=== PATIENT | female | born 1945 | race Caucasian/White ===

== ENCOUNTER 2018-07-15 07:42 | Inpatient (IN) | payer MEDICARE, OTHER ==
[~2018-07-15] VITALS: Ht 170.2 cm; Wt 98.7 kg
[2018-07-15] VITALS (29 sets, daily range): BP systolic 100–147; BP diastolic 53–75; PULSE 56–80; RESP 12–34; Ht 170.2 cm; Wt 98.7 kg
[2018-07-15] MEDS ORDERED: TRANEXAMIC ACID 1GM/100ML(PMX) 100 ML INTRA-OP X1 IVPB ONE (08:00)
[2018-07-15] MEDS ORDERED: LACTATED RINGER'S 1,000 ML IV* SCH (08:00)
[2018-07-15] MEDS ORDERED: DEXAMETHASONE 4 MG/ML 1 ML INJ IV ONE (08:00)
[2018-07-15] MEDS ORDERED: CEFAZOLIN 2 GM/50 ML (PMX) 50 ML IVPB ONE (08:00)
[2018-07-15] MEDS ORDERED: ACETAMINOPHEN 500 MG TAB PO ONE (08:00)
[2018-07-15] MEDS ORDERED: TRANEXAMIC ACID 1GM/100ML(PMX) 100 ML PRE-OP X1 IVPB ONE (08:00)
[2018-07-15] MEDS ORDERED: MIRA50TA PO (08:47)
[2018-07-15] MEDS ORDERED: LEVO112T42 PO (08:48)
[2018-07-15] MEDS ORDERED: LOSA50TA14 PO (08:48)
[2018-07-15] MEDS ORDERED: TRAZ-111 PO (08:49)
[2018-07-15] MEDS ORDERED: OXYB5TAB PO (08:49)
[2018-07-15] MEDS ORDERED: ACETAMINOPHEN 1000MG/100ML IV 100 ML IVPB ONE (09:00)
--- NOTE | 2018-07-15 09:01 | HPN ---
Date/Time of Note Date/Time of Note DATE: 07/15/18 TIME: 09:01 Interval H&P Admission Note Pt. seen H&P reviewed: No system changes RONNY BIRMINGHAM Jul 15, 2018 09:01
--- NOTE | 2018-07-15 09:38 | PREAC ---
Date/Time of Note Date/Time of Note DATE: 07/15/18 TIME: 09:36 Anesthesia Eval and Record Evaluation Time Pre-Procedure Interview DATE: 07/15/18 TIME: 09:36 Age 72 Sex female NPO: 8 hrs Preoperative diagnosis left knee joint loosening Planned procedure left total knee replacement revision Past Medical History Past Medical History: Includes Cardio: HTN, Dyslipidemia Endo: Hypothyroid Musculoskeletal: Osteoarthritis Surgery & Anesthesia Issues No known issue Meds Anticoagulation: No Beta Nova within 24 hr: No Reason Beta Nova not given: Pt. not on B-Nova Reported Medications Oxybutynin Chloride (Oxybutynin Chloride ER) 5 Mg Tab.er.24, 5 MG PO DAILY, TAB 07/15/18 Trazodone Hcl* (Trazodone Hcl*) 50 Mg Tablet, 25 MG PO QHS, #30 TAB 07/15/18 Levothyroxine Sodium* (Levoxyl*) 112 Mcg Tablet, 112 MCG PO BEFORE BREAKFAST, #30 TAB 07/15/18 Losartan Potassium* (Losartan Potassium*) 50 Mg Tablet, 50 MG PO DAILY, TAB 07/15/18 Mirabegron (Myrbetriq) 50 Mg Tab.er.24h, 50 MG PO DAILY, TAB 07/15/18 Current Medications Lactated Ringer's 1,000 ml @ 125 mls/hr Q8H IV* Last administered on 07/15/18at 08:57; Admin Dose 125 MLS/HR; Start 07/15/18 at 08:00; Stop 07/15/18 at 15:59 Meds reviewed: Yes Allergies Coded Allergies: No Known Allergy (Unverified , 07/15/18) Allergies Reviewed: Yes Labs/Studies Labs Reviewed: Reviewed by anesthesiologist test: N/A Studies: ECG, CXR Pre-procedure Exam Last vitals Vital Signs Date Temp Pulse Resp B/P (MAP) Pulse Ox O2 O2 Flow FiO2 Time Delivery Rate 07/15/18 98.7 78 16 147/71 95 Room Air 09:12 (96) Airway: Adequate mouth opening, Adequate thyromental dist Mallampati: Mallampati II Teeth: Normal Lung: Normal Heart: Normal ASA Physical Status ASA physical status: 2 Emergency: None Planned Anesthetic General/MAC: LMA Neuraxial: Spinal Planned Pain Management Parenteral pain med Pre-operative Attestations Prior to commencing anesthesia and surgery, the patient was re-evaluated, there was verification of: *The patient's identity *The results of appropriate recent lab work and preoperative vital signs *The above evaluation not changing prior to induction *Anesthetic plan, risk benefits, alternative and complications discussed with patient/family; questions answered; patient/family understands, accepts and wishes to proceed. ANTHONY ALVAREZ Jul 15, 2018 09:38
[2018-07-15] MEDS ORDERED: BACITRACIN 50000 UNITS INJ ONE (09:39)
[2018-07-15] MEDS ORDERED: POLYMYXIN B 500000 UNIT INJ ONE (09:41)
[2018-07-15] MEDS ORDERED: EPINEPHrine 1 MG INJ ONE (09:48)
[2018-07-15] MEDS ORDERED: LIDOCAINE 2% (SDV) 5 ML INJ ONE (09:48)
[2018-07-15] MEDS ORDERED: ROCURONIUM 50 MG INJ ONE (09:48)
[2018-07-15] MEDS ORDERED: PROPOFOL 100 ML ONE (09:48)
[2018-07-15] MEDS ORDERED: CEFAZOLIN 1 GM INJ ONE (09:49)
[2018-07-15] MEDS ORDERED: MIDAZOLAM 1 MG/ML 2 ML INJ ONE (09:55)
[2018-07-15] MEDS ORDERED: FENTAnyl 50 MCG/ML VIAL ONE (09:55)
[2018-07-15] MEDS ORDERED: TRANEXAMIC ACID 1GM/100ML(PMX) 100 ML ONE ×2 (10:54→12:34)
[2018-07-15] MEDS ORDERED: DEXAMETHASONE 4 MG/ML 5 ML INJ ONE (12:32)
[2018-07-15] MEDS ORDERED: ONDANSETRON 4 MG INJ ONE (12:32)
[2018-07-15] MEDS ORDERED: GLYCOPYRROLATE 0.4 MG INJ ONE (13:27)
[2018-07-15] MEDS ORDERED: NEOSTIGMINE 3 MG/3 ML SYRINGE ONE (13:28)
--- NOTE | 2018-07-15 13:29 | SIPON ---
Date/Time of Note Date/Time of Note DATE: 07/15/18 TIME: 13:27 Operative Report Preoperative Diagnosis Failed left total knee replacement Postoperative Diagnosis Same Operation/Procedure Performed Revision of left total knee replacement Surgeon see signature line medical assistant float STEWART Oliveira Anesthesia: spinal Estimated blood loss: 250 - 300 ml's Transfusion Required none Specimen Cultures Grafts/Implants Attune revision knee, size 5 femur, size 4 tibia, 14 mm rotating platform polyethylene and 35 mm patella. 16 x 60 mm stems were used on both sides as well as a 40 mm femoral sleeve and 37 mm tibial sleeve Complications none RONNY BIRMINGHAM Jul 15, 2018 13:29
--- NOTE | 2018-07-15 13:34 | OPR ---
Date/Time of Note Date/Time of Note DATE: 07/15/18 TIME: 13:29 Operative Report Procedure Date: Jul 15, 2018 Preoperative Diagnosis Failed left total knee replacement Postoperative Diagnosis Same Operation/Procedure Performed Mechanical loosening of left total knee replacement Surgeon see signature line Lube Attendant STEWART Oliveira Anesthesia Type: spinal Estimated Blood Loss: 250 - 300 ml's Transfusion none Specimen Cultures Grafts/Implants attune revision knee, size 5 femur with a 40 mm sleeve and 16 x 60 mm stem. Two 4 mm augments were used on the distal part of the femur. Size 4 tibia with 37 mm sleeve and 16 x 60 stem. 35 mm patella and 14 mm rotating platform polyethylene Tubes/Drains None Complications none Pt Condition Post Procedure: stable Disposition: PACU Indications The patient is a 72-year-old female with a painful left total knee replacement Procedure Description The patient was placed supine on the operating room table. The left knee was prepped and draped in the usual manner. An anterior incision was made. A medial parapatellar approach was used. Effusion was noted and cultures were obtained. The previous implants were removed with the help of microsagittal saw and flexible osteotomes. It was noted that both the tibial and femoral components were loose. The patella was removed as well due to abnormal wear. All cement from the distal end of the femur and proximal tibia was removed. The intramedullary canal was thoroughly irrigated. The tibia was prepared for a size 4 component with a 37 mm sleeve and 16 x 60 mm stem from the [place] knee system. The femur was prepared for a size 5 component with a 40 mm sleeve and 16 x 60 mm stem. 2 distal augments were needed to make sure the joint line was at the correct level and the patellar tracking was excellent. With trial components in place, the knee had 0 to 120 degrees of motion with good balance and tracking. X-rays confirm proper alignment of the implants. After this, the implants were assembled on the back table. The knee was thoroughly irrigated and injected with pain cocktail. Once hemostasis was confirmed, final components were placed. The fixation was obtained with a combination of porous coating on the sleeves and cementing on the distal end of the femur and proximal tibia. The patella was cemented in place as well. After the cement was set the knee had full range of motion with good balance and tracking. The wound was irrigated and closed in layers using #1 strata fix for deep fascia, 2-0 Vicryl for subcutaneous tissue and 3 Monocryl for the skin. Patient was transferred to the recovery room in stable condition RONNY BIRMINGHAM Jul 15, 2018 13:34
[2018-07-15] MEDS ORDERED: BUPIVACAINE 0.5% (SDV) 30 ML INJ ONE (13:57)
[2018-07-15] MEDS ORDERED: MAGNESIUM HYDROXIDE 30ML CUP PO PRN (14:00)
[2018-07-15] MEDS ORDERED: oxyCODONE 5 MG TAB PO PRN (14:00)
[2018-07-15] MEDS ORDERED: NACL 0.9% 3 ML SYG IV SCH (14:00)
[2018-07-15] MEDS ORDERED: NALOXONE (0.4 MG/ML) INJ IV PRN (14:00)
[2018-07-15] MEDS ORDERED: CEFAZOLIN 2 GM/50 ML (PMX) 50 ML IVPB SCH (14:00)
--- NOTE | 2018-07-15 14:20 | PAC ---
Date/Time of Note Date/Time of Note DATE: 07/15/18 TIME: 14:19 Post-Anesthesia Notes Post-Anesthesia Note Last documented vital signs Vital Signs Date Temp Pulse Resp B/P (MAP) Pulse Ox O2 O2 Flow FiO2 Time Delivery Rate 07/15/18 98.7 78 16 147/71 95 Room Air 1420 (96) Activity: WNL Respiratory function: WNL Cardiovascular function: WNL Mental status: Baseline Pain reasonably controlled: Yes Hydration appropriate: Yes Nausea/Vomiting absent: Yes ANTHONY ALVAREZ Jul 15, 2018 14:20
[2018-07-15] MEDS ORDERED: KETOROLAC 30 MG INJ IV PRN (14:30)
[2018-07-15] MEDS ORDERED: ONDANSETRON 4 MG INJ IV PRN (14:30)
[2018-07-15] MEDS ORDERED: MIDAZOLAM 1 MG/ML 2 ML INJ IV PRN (14:30)
[2018-07-15] MEDS ORDERED: EPHEDrine SULFATE 50 MG/5 ML SYG IV PRN (14:30)
[2018-07-15] MEDS ORDERED: DIPHENHYDRAMINE 50 MG INJ IV PRN (14:30)
[2018-07-15] MEDS ORDERED: FENTAnyl 50 MCG/ML VIAL IV PRN ×3 (14:30)
[2018-07-15] MEDS ORDERED: MEPERIDINE 25 MG INJ IV PRN (14:30)
[2018-07-15] MEDS ORDERED: HYDROmorphONE 1 MG/5 ML IV SYRINGE IV PRN ×3 (14:30)
[2018-07-15] MEDS ORDERED: ALBUTEROL 0.083% (NEB) 2.5 MG/3 ML AMP HHN PRN (14:30)
[2018-07-15] MEDS ORDERED: LABETALOL HCL 20MG INJ IV PRN (14:30)
[2018-07-15] MEDS ORDERED: hydrALAzine 20 MG INJ IV PRN (14:30)
[2018-07-15] MEDS ORDERED: METOCLOPRAMIDE 10 MG INJ IV PRN (14:30)
--- NOTE | 2018-07-15 16:39 | HP ---
Date/Time of Note Date/Time of Note DATE: 07/15/18 TIME: 16:31 Assessment/Plan VTE Prophylaxis Risk score (from Ns)>0 risk: 2 SCD applied (from Ns): Yes SCD contraindicated: other Pharmacological prophylaxis: other Pharm contraindication: other Lines/Catheters IV Catheter Type (from Nrsg): Peripheral IV Assessment/Plan Assessment/Plan Failed left total knee replacement Mechanical loosening of left total knee replacement - ADMIT to tele - per ortho - pain control - PT - SCD HTN- STABLE HypothyroidisM HPI/ROS Admit Date/Time Admit Date/Time Jul 15, 2018 at 07:42 ROS The patient is a 72-year-old female with a painful left total knee replacement Respiratory: no complaints Cardiovascular: no complaints Gastrointestinal: no complaints Genitourinary: no complaints Musculoskeletal: bone/joint pain, neck pain PMH/Family/Social Past Medical History Medical History: hypertension, hypothyroid Medications Current Medications Lactated Ringer's 1,000 ml @ 80 mls/hr [id number] IV ; Start 07/15/18 at 13:34 IV Flush (NS 3 ml) 3 ml PER PROTOCOL IV ; Start 07/15/18 at 14:00 Oxycodone HCl (Roxicodone) 10 mg Q4H PRN PO .PAIN; Start 07/15/18 at 14:00 Oxycodone HCl (Roxicodone) 5 mg Q4H PRN PO .PAIN; Start 07/15/18 at 14:00 Ketorolac Tromethamine (Toradol) 15 mg Q6H PRN IV .PAIN; Start 07/15/18 at 14:00 Ondansetron HCl (Zofran Inj) 4 mg Q4H PRN IV NAUSEA/VOMITING; Start 07/16/18 at 14:00 Cefazolin Sodium/ Dextrose 50 ml @ 100 mls/hr Q8H IVPB ; Start 07/15/18 at 14:00; Stop 07/16/18 at 06:29 Celecoxib (Celebrex) 100 mg BID PO ; Start 07/16/18 at 09:00 Gabapentin (Neurontin) 100 mg TID PO ; Start 07/15/18 at 21:00 Pantoprazole (Protonix Tab) 40 mg DAILY@06 PO ; Start 07/17/18 at 06:00 Docusate Sodium (Colace) 200 mg BID PO ; Start 07/16/18 at 09:00; Stop 07/19/18 at 08:59 Magnesium Hydroxide (Milk Of Mag) 30 ml HS PRN PO .CONSTIPATION; Start 07/15/18 at 14:00 Naloxone HCl (Narcan) 0.2 mg Q2M PRN IV .RESP RATE; Start 07/15/18 at 14:00 Aspirin (Halfprin) 81 mg BID PO ; Start 07/16/18 at 09:00 Hydromorphone HCl (Dilaudid) 0.2 mg PACU PRN IV MILD PAIN 1-3; Start 07/15/18 at 14:30; Stop 07/15/18 at 19:00 Hydromorphone HCl (Dilaudid) 0.4 mg PACU PRN IV MOD PAIN 4-6; Start 07/15/18 at 14:30; Stop 07/15/18 at 19:00 Hydromorphone HCl (Dilaudid) 0.6 mg PACU PRN IV SEVERE PAIN 7-10; Start 07/15/18 at 14:30; Stop 07/15/18 at 19:00 Fentanyl (Sublimaze) 25 mcg PACU ORDER PRN IV MILD PAIN 1-3; Start 07/15/18 at 14:30; Stop 07/15/18 at 19:00 Fentanyl (Sublimaze) 50 mcg PACU ORDER PRN IV MOD PAIN 4-6; Start 07/15/18 at 14:30; Stop 07/15/18 at 19:00 Fentanyl (Sublimaze) 75 mcg PACU ORDER PRN IV SEVERE PAIN 7-10; Start 07/15/18 at 14:30; Stop 07/15/18 at 19:00 Ketorolac Tromethamine (Toradol) 30 mg PACU ORDER PRN IV FOR PAIN AFTER IV NARCOTIC MED; Start 07/15/18 at 14:30; Stop 07/15/18 at 19:00 Ondansetron HCl (Zofran Inj) 4 mg PACU ORDER PRN IV NAUSEA/VOMITING; Start 07/15/18 at 14:30; Stop 07/15/18 at 19:00 Metoclopramide HCl (Reglan) 10 mg PACU ORDER PRN IV NAUSEA/VOMITING; Start 07/15/18 at 14:30; Stop 07/15/18 at 19:00 Labetalol HCl (Labetalol) 5 mg PACU ORDER PRN IV HIGH BLOOD PRESSURE; Start 07/15/18 at 14:30; Stop 07/15/18 at 19:00 Hydralazine HCl (Apresoline) 5 mg PACU ORDER PRN IV HIGH BLOOD PRESSURE; Start 07/15/18 at 14:30; Stop 07/15/18 at 19:00 Ephedrine Sulfate 5 mg PACU ORDER PRN IV BLOOD PRESSURE SUPPORT; Start 07/15/18 at 14:30; Stop 07/15/18 at 19:00 Albuterol (Proventil 0.083% (Neb)) 2.5 mg PACU ORDER PRN HHN .WHEEZING; Start 07/15/18 at 14:30; Stop 07/15/18 at 19:00 Meperidine HCl (Demerol) 25 mg PACU ORDER PRN IV .RIGORS; Start 07/15/18 at 14:30; Stop 07/15/18 at 19:00 Diphenhydramine HCl (Benadryl) 25 mg PACU ORDER PRN IV .PRURITUS; Start 07/15/18 at 14:30; Stop 07/15/18 at 19:00 Midazolam HCl (Versed) 0.5 mg PACU ORDER PRN IV .ANXIETY; Start 07/15/18 at 14:30; Stop 07/15/18 at 19:00 Coded Allergies: No Known Allergy (Unverified , 07/15/18) Past Surgical History Hip Sx x 2 Social History Smoking Status: Never smoker Exam/Review of Systems Vital Signs Vitals Vital Signs Date Temp Pulse Resp B/P (MAP) Pulse Ox O2 O2 Flow FiO2 Time Delivery Rate 07/15/18 56 16 113/68 100 Nasal 15:34 (83) Cannula 07/15/18 98.2 14:14 Exam Constitutional: alert, well developed Psych: nl mood/affect Head: atraumatic Eyes: nl lids, nl sclera ENMT: nl external ears & nose Neck: non-tender Respiratory: diminished breath sounds Cardiovascular: nl pulses, other Gastrointestinal: soft, non-tender Musculoskeletal: joint tenderness, range of motion Neurological: nl speech, other Skin: nl turgor Lymph: nontender RUBEN TAVAREZ Jul 15, 2018 16:39
[2018-07-15] MEDS: LACTATED RINGER'S 1,000 ML IV SCH (17:12)
[2018-07-15] MEDS: CEFAZOLIN 2 GM/50 ML (PMX) 50 ML IVPB SCH (19:27)
[2018-07-15] MEDS: KETOROLAC 15 MG INJ IV PRN (19:49)
[2018-07-15] MEDS: GABAPENTIN 100 MG CAP PO SCH (20:41)
[2018-07-16] VITALS: BP 110/60; PULSE 70; RESP 20
[2018-07-16] MEDS: LACTATED RINGER'S 1,000 ML IV SCH ×2 (02:04→14:34)
[2018-07-16] MEDS: CEFAZOLIN 2 GM/50 ML (PMX) 50 ML IVPB SCH ×2 (02:38→09:09)
[2018-07-16] MEDS: KETOROLAC 15 MG INJ IV PRN (06:05)
[2018-07-16 06:12] VITALS: BP 122/60; PULSE 64; RESP 18
[2018-07-16 07:38] VITALS: BP 103/51; RESP 19
[2018-07-16] MEDS: ASPIRIN (EC) 81 MG TAB PO SCH ×2 (09:09→21:48)
[2018-07-16] MEDS: CELECOXIB 100 MG CAP PO SCH ×2 (09:09→21:48)
[2018-07-16] MEDS: GABAPENTIN 100 MG CAP PO SCH ×3 (09:09→21:48)
[2018-07-16] MEDS: DOCUSATE SODIUM 100 MG CAP PO SCH ×2 (09:09→21:48)
--- NOTE | 2018-07-16 10:07 | PN ---
Date/Time of Note Date/Time of Note DATE: 07/16/18 TIME: 10:05 Assessment/Plan Lines/Catheters IV Catheter Type (from Nrsg): Saline Lock Larson in Place (from Nrsg): No Assessment/Plan Assessment/Plan Patient is progressing well after left knee revision. Due to the magnitude of surgery, the patient needs 1 more day in the hospital with physical therapy and pain control. She will be discharged tomorrow on July 17. Subjective 24 Hr Interval Summary Progressing well after left knee revision, patient has mild pain Exam/Review of Systems Vital Signs Vitals Vital Signs Date Temp Pulse Resp B/P (MAP) Pulse Ox O2 O2 Flow FiO2 Time Delivery Rate 07/16/18 96.4 103/51 98 07:38 (68) 07/16/18 64 Room Air 06:12 Intake and Output 07/15/18 07/15/18 07/16/18 1515:00 23:00 07:00 IntakeIntake Total 1700 ml 1070 ml 650 ml OutputOutput Total 40 ml 200 ml BalanceBalance 1660 ml 870 ml 650 ml Exam Free Text/Dictation Patient is awake and alert. She is sitting in a chair eating her breakfast. Patient reports that she has been up with physical therapy and ambulating with a walker. Pain is controlled with oral pain medication. Left knee dressing is intact with no evidence of infection or DVT. Results Result Diagram: 07/16/18 0435 07/16/18 0435 RONNY BIRMINGHAM Jul 16, 2018 10:07
--- NOTE | 2018-07-16 10:08 | PDOCDIS ---
Discharge Instructions DIAGNOSIS Discharge Diagnosis Left knee revision CONDITION [id number] Patient Condition: [id number] Good HOME CARE INSTRUCTIONS: [id number] Diet Instructions: Chchh0t Regular ACTIVITY: [id number] Activity Restrictions: [id number] Slowly Increase Activity Do not Drive Keep Limb Elevated [id number] Bathing Restrictions: [id number] Shower FOLLOW UP/APPOINTMENTS Follow-up Plan 2 weeks with RONNY Blair Jul 16, 2018 10:08
--- NOTE | 2018-07-16 10:10 | DS ---
Date/Time of Note Date/Time of Note DATE: 07/16/18 TIME: 10:09 Discharge Summary Admission/Discharge Info Admit Date/Time Jul 15, 2018 at 07:42 Discharge Date/Time July 17 2018 Discharge Diagnosis Left knee revision Patient Condition: Good Hospital Course Patient underwent revision of her left knee replacement on July 15, 2018. The patient tolerated the procedure well and was started on DVT prophylaxis and early physical therapy. The patient was able to ambulate with a walker and pain is controlled with oral pain medication. She is discharged home on July 17, 2018 with instructions to follow-up in 2 weeks. Home Meds Reported Medications Oxybutynin Chloride (Oxybutynin Chloride ER) 5 Mg Tab.er.24, 5 MG PO DAILY, TAB 07/15/18 Trazodone Hcl* (Trazodone Hcl*) 50 Mg Tablet, 25 MG PO QHS, #30 TAB 07/15/18 Levothyroxine Sodium* (Levoxyl*) 112 Mcg Tablet, 112 MCG PO BEFORE BREAKFAST, #30 TAB 07/15/18 Losartan Potassium* (Losartan Potassium*) 50 Mg Tablet, 50 MG PO DAILY, TAB 07/15/18 Mirabegron (Myrbetriq) 50 Mg Tab.er.24h, 50 MG PO DAILY, TAB 07/15/18 Follow-up Plan [address] Mendez Primary Care Provider Not On Staff Doctor Time spent on discharge: < 30 minutes Pending Labs Laboratory Tests Test 07/16/18 04:35 07/16/18 06:49 White Blood Count 11.2 10^3/ul (4.8-10.8) Red Blood Count 3.83 10^6/ul (4.20-5.40) Hemoglobin 11.7 g/dl (12.0-16.0) Hematocrit 35.5 % (37.0-47.0) Mean Corpuscular Volume 92.7 fl (82.0-101.0) Mean Corpuscular Hemoglobin 30.5 pg (29.0-33.0) Mean Corpuscular 33.0 g/dl (32.0-37.0) Hemoglobin Concent Red Cell Distribution Width 12.9 % (11.5-14.5) Platelet Count 230 10^3/UL (140-415) Mean Platelet Volume 10.4 fl (7.4-10.4) Immature Granulocytes % 0.400 % (0.001-0.429) Neutrophils % 87.0 % (39.0-77.0) Lymphocytes % 6.7 % (15.0-51.0) Monocytes % 5.8 % (0.0-11.0) Eosinophils % 0.0 % (0.0-7.0) Basophils % 0.1 % (0.0-2.0) Nucleated Red Blood Cells % 0.0 /100WBC (0.0-0.0) Immature Granulocytes # 0.040 10^3/ul (0.0-0.031) Neutrophils # 9.7 10^3/ul (1.6-7.5) Lymphocytes # 0.8 10^3/ul (0.8-2.9) Monocytes # 0.7 10^3/ul (0.3-0.9) Eosinophils # 0.0 10^3/ul (0.0-0.5) Basophils # 0.0 10^3/ul (0.0-0.1) Nucleated Red Blood Cells # 0.0 10^3/ul (0.0-0.0) Sodium Level 141 mmol/L (135-144) Potassium Level 4.3 mmol/L (3.5-5.1) Chloride Level 109 mmol/L (97-110) Carbon Dioxide Level 26 mmol/L (21-31) Anion Gap 6 (5-13) Blood Urea Nitrogen 19 mg/dl (7-20) Creatinine 0.82 mg/dl (0.44-1.00) Est Glomerular Filtrat mL/min (>60) Rate mL/min Glucose Level 114 mg/dl (70-220) Calcium Level 8.8 mg/dl (8.4-10.2) Lab Scanned Report [facility] LAB [id number] [facility],RONNY Jul 16, 2018 10:10
[2018-07-16] MEDS: oxyCODONE 5 MG TAB PO PRN (13:25)
[2018-07-16] MEDS ORDERED: ONDANSETRON 4 MG INJ IV PRN (14:00)
[2018-07-16 15:47] VITALS: BP 121/68; RESP 18
[2018-07-16 19:33] VITALS: BP 112/65; PULSE 67; RESP 18
[2018-07-16] MEDS ORDERED: NA PHOSPHATE/BIPHOS 133 ML ENEMA PR ONE (21:30)
[2018-07-17 02:00] VITALS: BP 119/70; RESP 18
[2018-07-17] MEDS: LACTATED RINGER'S 1,000 ML IV SCH (03:04)
[2018-07-17] MEDS: oxyCODONE 5 MG TAB PO PRN ×3 (05:06→10:06)
[2018-07-17] MEDS ORDERED: PANTOPRAZOLE (EC) 40 MG TAB PO SCH (06:00)
[2018-07-17] MEDS ORDERED: LEVOTHYROXINE 112 MCG TAB PO SCH (07:00)
[2018-07-17 07:15] VITALS: BP 114/55; PULSE 67; RESP 18
[2018-07-17] MEDS ORDERED: LOSARTAN 50 MG TAB PO SCH (09:00)
[2018-07-17] MEDS ORDERED: NON-FORMULARY/PATIENT OWN MED (Mirabegron (Myrbetriq) 50 MG) PO SCH (09:00)
[2018-07-17] MEDS: CELECOXIB 100 MG CAP PO SCH (09:47)
[2018-07-17] MEDS: DOCUSATE SODIUM 100 MG CAP PO SCH (09:50)
[2018-07-17] MEDS: GABAPENTIN 100 MG CAP PO SCH ×2 (09:52→14:20)
[2018-07-17] MEDS: ASPIRIN (EC) 81 MG TAB PO SCH (09:53)
[2018-07-17 13:13] VITALS: BP 118/57; PULSE 72; RESP 18
--- NOTE | 2018-07-17 14:17 | PN ---
Date/Time of Note Date/Time of Note DATE: 07/17/18 TIME: 14:14 Assessment/Plan VTE Prophylaxis Risk score (from Nsg)>0 risk: 6 SCD applied (from Nsg): Yes Lines/Catheters IV Catheter Type (from Nrsg): Saline Lock Urinary Cath still in place: No Assessment/Plan Assessment/Plan Failed left total knee replacement Mechanical loosening of left total knee replacement - ADMIT to tele - per ortho - pain control - PT - SCD HTN- STABLE Hypothyroidism Dw Dr Jones Result Diagram: 07/17/1844807/17/18448 Results 24hrs Laboratory Tests Test 07/17/18 04:49 White Blood Count 7.3 # Red Blood Count 3.64 L Hemoglobin 11.2 L Hematocrit 34.5 L Mean Corpuscular Volume 94.8 Mean Corpuscular Hemoglobin 30.8 Mean Corpuscular Hemoglobin Concent 32.5 Red Cell Distribution Width 13.2 Platelet Count 201 Mean Platelet Volume 10.6 H Immature Granulocytes % 0.300 Neutrophils % 62.2 Lymphocytes % 26.1 Monocytes % 9.8 Eosinophils % 1.2 Basophils % 0.4 Nucleated Red Blood Cells % 0.0 Immature Granulocytes # 0.020 Neutrophils # 4.5 Lymphocytes # 1.9 Monocytes # 0.7 Eosinophils # 0.1 Basophils # 0.0 Nucleated Red Blood Cells # 0.0 Sodium Level 143 Potassium Level 4.3 Chloride Level 109 Carbon Dioxide Level 30 Anion Gap 4 L Blood Urea Nitrogen 28 H Creatinine 1.00 Est Glomerular Filtrat Rate mL/min Glucose Level 86 Calcium Level 9.2 Subjective 24 Hr Interval Summary Free Text/Dictation 07/16/2018 entry Exam/Review of Systems Exam Vitals Vital Signs Date Temp Pulse Resp B/P (MAP) Pulse Ox O2 O2 Flow FiO2 Time Delivery Rate 07/17/18 98.3 72 18 118/57 94 13:13 (77) 07/17/18 Room Air 02:00 Intake and Output 07/16/18 07/16/18 07/17/18 1515:00 23:00 07:00 IntakeIntake Total 450 ml 220 ml 300 ml BalanceBalance 450 ml 220 ml 300 ml Constitutional: alert, well developed Results Results 24hrs Laboratory Tests Test 07/17/18 04:49 White Blood Count 7.3 # Red Blood Count 3.64 L Hemoglobin 11.2 L Hematocrit 34.5 L Mean Corpuscular Volume 94.8 Mean Corpuscular Hemoglobin 30.8 Mean Corpuscular Hemoglobin Concent 32.5 Red Cell Distribution Width 13.2 Platelet Count 201 Mean Platelet Volume 10.6 H Immature Granulocytes % 0.300 Neutrophils % 62.2 Lymphocytes % 26.1 Monocytes % 9.8 Eosinophils % 1.2 Basophils % 0.4 Nucleated Red Blood Cells % 0.0 Immature Granulocytes # 0.020 Neutrophils # 4.5 Lymphocytes # 1.9 Monocytes # 0.7 Eosinophils # 0.1 Basophils # 0.0 Nucleated Red Blood Cells # 0.0 Sodium Level 143 Potassium Level 4.3 Chloride Level 109 Carbon Dioxide Level 30 Anion Gap 4 L Blood Urea Nitrogen 28 H Creatinine 1.00 Est Glomerular Filtrat Rate mL/min Glucose Level 86 Calcium Level 9.2 Medications Medication Current Medications Lactated Ringer's 1,000 ml @ 80 mls/hr [id number] IV Last administered on 07/15/18at 17:12; Admin Dose 80 MLS/HR; Start 07/15/18 at 13:34 IV Flush (NS 3 ml) 3 ml PER PROTOCOL IV ; Start 07/15/18 at 14:00 Oxycodone HCl (Roxicodone) 10 mg Q4H PRN PO .PAIN; Start 07/15/18 at 14:00 Oxycodone HCl (Roxicodone) 5 mg Q4H PRN PO .PAIN Last administered on 07/17/18at 09:57; Admin Dose 5 MG; Start 07/15/18 at 14:00 Ketorolac Tromethamine (Toradol) 15 mg Q6H PRN IV .PAIN Last administered on 07/16/18at 06:05; Admin Dose 15 MG; Start 07/15/18 at 14:00 Ondansetron HCl (Zofran Inj) 4 mg Q4H PRN IV NAUSEA/VOMITING; Start 07/16/18 at 14:00 Celecoxib (Celebrex) 100 mg BID PO Last administered on 07/17/18at 09:47; Admin Dose 100 MG; Start 07/16/18 at 09:00 Gabapentin (Neurontin) 100 mg TID PO Last administered on 07/17/18at 09:52; Admin Dose 100 MG; Start 07/15/18 at 21:00 Pantoprazole (Protonix Tab) 40 mg DAILY@06 PO Last administered on 07/17/18 05:06; Admin Dose 40 MG; Start 07/17/18 at 06:00 Docusate Sodium (Colace) 200 mg BID PO Last administered on 07/17/18 09:50; Admin Dose 200 MG; Start 07/16/18 at 09:00; Stop 07/19/18 at 08:59 Magnesium Hydroxide (Milk Of Mag) 30 ml HS PRN PO .CONSTIPATION Last administered on 07/17/18 05:06; Admin Dose 30 ML; Start 07/15/18 at 14:00 Naloxone HCl (Narcan) 0.2 mg Q2M PRN IV .RESP RATE; Start 07/15/18 at 14:00 Aspirin (Halfprin) 81 mg BID PO Last administered on 07/17/18 09:53; Admin Dose 81 MG; Start 07/16/18 at 09:00 Levothyroxine Sodium (Synthroid) 112 mcg BEFORE BREAKFAST PO Last administered on 07/17/18 06:35; Admin Dose 112 MCG; Start 07/17/18 at 07:00 Losartan Potassium (Cozaar) 50 mg DAILY PO Last administered on 07/17/18 09:59; Admin Dose 50 MG; Start 07/17/18 at 09:00 Miscellaneous Information 50 mg DAILY PO ; Start 07/17/18 at 09:00; Status RUBEN LUNDBERG Jul 17, 2018 14:16
--- NOTE | 2018-07-17 14:17 | PN ---
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 - ADMIT to tele - per ortho - pain control - PT - SCD HTN- STABLE Hypothyroidism Dw Dr Jones Result Diagram: 07/17/1844807/17/18448 Results 24hrs Laboratory Tests Test 07/17/18 04:49 White Blood Count 7.3 # Red Blood Count 3.64 L Hemoglobin 11.2 L Hematocrit 34.5 L Mean Corpuscular Volume 94.8 Mean Corpuscular Hemoglobin 30.8 Mean Corpuscular Hemoglobin Concent 32.5 Red Cell Distribution Width 13.2 Platelet Count 201 Mean Platelet Volume 10.6 H Immature Granulocytes % 0.300 Neutrophils % 62.2 Lymphocytes % 26.1 Monocytes % 9.8 Eosinophils % 1.2 Basophils % 0.4 Nucleated Red Blood Cells % 0.0 Immature Granulocytes # 0.020 Neutrophils # 4.5 Lymphocytes # 1.9 Monocytes # 0.7 Eosinophils # 0.1 Basophils # 0.0 Nucleated Red Blood Cells # 0.0 Sodium Level 143 Potassium Level 4.3 Chloride Level 109 Carbon Dioxide Level 30 Anion Gap 4 L Blood Urea Nitrogen 28 H Creatinine 1.00 Est Glomerular Filtrat Rate mL/min Glucose Level 86 Calcium Level 9.2 Exam/Review of Systems Exam Vitals Vital Signs Date Temp Pulse Resp B/P (MAP) Pulse Ox O2 O2 Flow FiO2 Time Delivery Rate 07/17/18 98.3 72 18 118/57 94 13:13 (77) 07/17/18 Room Air 02:00 Intake and Output 07/16/18 07/16/18 07/17/18 1515:00 23:00 07:00 IntakeIntake Total 450 ml 220 ml 300 ml BalanceBalance 450 ml 220 ml 300 ml Results Results 24hrs Laboratory Tests Test 07/17/18 04:49 White Blood Count 7.3 # Red Blood Count 3.64 L Hemoglobin 11.2 L Hematocrit 34.5 L Mean Corpuscular Volume 94.8 Mean Corpuscular Hemoglobin 30.8 Mean Corpuscular Hemoglobin Concent 32.5 Red Cell Distribution Width 13.2 Platelet Count 201 Mean Platelet Volume 10.6 H Immature Granulocytes % 0.300 Neutrophils % 62.2 Lymphocytes % 26.1 Monocytes % 9.8 Eosinophils % 1.2 Basophils % 0.4 Nucleated Red Blood Cells % 0.0 Immature Granulocytes # 0.020 Neutrophils # 4.5 Lymphocytes # 1.9 Monocytes # 0.7 Eosinophils # 0.1 Basophils # 0.0 Nucleated Red Blood Cells # 0.0 Sodium Level 143 Potassium Level 4.3 Chloride Level 109 Carbon Dioxide Level 30 Anion Gap 4 L Blood Urea Nitrogen 28 H Creatinine 1.00 Est Glomerular Filtrat Rate mL/min Glucose Level 86 Calcium Level 9.2 Medications Medication Current Medications Lactated Ringer's 1,000 ml @ 80 mls/hr [id number] IV Last administered on 07/15/18at 17:12; Admin Dose 80 MLS/HR; Start 07/15/18 at 13:34 IV Flush (NS 3 ml) 3 ml PER PROTOCOL IV ; Start 07/15/18 at 14:00 Oxycodone HCl (Roxicodone) 10 mg Q4H PRN PO .PAIN; Start 07/15/18 at 14:00 Oxycodone HCl (Roxicodone) 5 mg Q4H PRN PO .PAIN Last administered on 07/17/18at 09:57; Admin Dose 5 MG; Start 07/15/18 at 14:00 Ketorolac Tromethamine (Toradol) 15 mg Q6H PRN IV .PAIN Last administered on 07/16/18at 06:05; Admin Dose 15 MG; Start 07/15/18 at 14:00 Ondansetron HCl (Zofran Inj) 4 mg Q4H PRN IV NAUSEA/VOMITING; Start 07/16/18 at 14:00 Celecoxib (Celebrex) 100 mg BID PO Last administered on 07/17/18at 09:47; Admin Dose 100 MG; Start 07/16/18 at 09:00 Gabapentin (Neurontin) 100 mg TID PO Last administered on 07/17/18at 09:52; Admin Dose 100 MG; Start 07/15/18 at 21:00 Pantoprazole (Protonix Tab) 40 mg DAILY@06 PO Last administered on 07/17/18at 05:06; Admin Dose 40 MG; Start 07/17/18 at 06:00 Docusate Sodium (Colace) 200 mg BID PO Last administered on 07/17/18 09:50; Admin Dose 200 MG; Start 07/16/18 at 09:00; Stop 07/19/18 at 08:59 Magnesium Hydroxide (Milk Of Mag) 30 ml HS PRN PO .CONSTIPATION Last administered on 07/17/18 05:06; Admin Dose 30 ML; Start 07/15/18 at 14:00 Naloxone HCl (Narcan) 0.2 mg Q2M PRN IV .RESP RATE; Start 07/15/18 at 14:00 Aspirin (Halfprin) 81 mg BID PO Last administered on 07/17/18 09:53; Admin D ose 81 MG; Start 07/16/18 at 09:00 Levothyroxine Sodium (Synthroid) 112 mcg BEFORE BREAKFAST PO Last administered on 07/17/18 06:35; Admin Dose 112 MCG; Start 07/17/18 at 07:00 Losartan Potassium (Cozaar) 50 mg DAILY PO Last administered on 07/17/18 09:59; Admin Dose 50 MG; Start 07/17/18 at 09:00 Miscellaneous Information 50 mg DAILY PO ; Start 07/17/18 at 09:00; Status UNRUBEN BARKLEY Jul 17, 2018 14:17
== END 2018-07-17 14:30 | disposition home health service (06) | DRG 468 ==
LOC: REC 07:42 → EDSTATUS 10:30 → MS1 16:53
PROVIDERS: ADMIT Orthopaedic Surgery; ATTEND Orthopaedic Surgery
PROC: 0SRD0J9 Replacement of Left Knee Joint with Synthetic Substitute, Cemented, Open Approach (ICD-10-PCS; 2018-07-15)
PROC: 0SPD0JZ Removal of Synthetic Substitute from Left Knee Joint, Open Approach (ICD-10-PCS; principal; 2018-07-15 10:30)
DX: T84.033A Mechanical loosening of internal left knee prosthetic joint, initial encounter (principal); I10 Essential (primary) hypertension; E03.9 Hypothyroidism, unspecified
CPT/HCPCS: 73560; 80048; 85025; 86850; 86900; 86901; 87070; 87075; 87081; 87102; 87116; 88300; 97110; 97116; 97161; 97167; 97530; C1713; C1776; J0131; J0171; J0690; J0735; J1100; J1885; J2250; J2405; J2710; J2795; J3010; J7120